=== PATIENT | male | born 1935 | race Caucasian/White ===

== ENCOUNTER 2021-08-01 07:07 | Emergency (ER) | payer MEDICARE ==
[2021-08-01] MEDS ORDERED: Ibuprofen 200 MG TAB ONE (08:02)
== END 2021-08-01 09:34 | disposition home or self-care (01) ==
LOC: ERS 07:07
DX: R10.2 Pelvic and perineal pain (principal); I48.91 Unspecified atrial fibrillation; W19.XXXA Unspecified fall, initial encounter
CPT/HCPCS: 72170; 72192

== ENCOUNTER 2022-05-22 10:49 | Observation (INO) | payer MEDICARE, OTHER ==
[2022-05-22] MEDS ORDERED: Diltiazem 125 MG/25 ML SDV ONE (11:07)
[2022-05-22 11:27] LABS: #Eosinphils 0.8 thou/uL (0.0-0.7); #Lymphocytes 1.2 thou/uL (1.20-3.40); #Monocytes 0.8 thou/uL (0.11-0.59); #Neutrophils 3.6 thou/uL (1.40-6.50); %Basophils 0.7 % (0.0-1.0); %Eosinophils 11.9 % (0.0-10.0); %Lymphocytes 19.2 % (21.0-51.0); %Monocytes 12.2 % (0.0-10.0); %Neutrophils 55.9 % (42.0-75.0); Hemoglobin 15.8 g/dL (14.0-18.0); Mean Corpuscular HGB CONC 33.1 g/dL (32.0-36.0); Mean Corpuscular Hemoglobin 34.7 pg (27.0-31.0); Mean Platelet Volume 6.6 fL (7.4-10.4); Platelet Count 296 10x3/uL (130-400); RBC Distribution Width 13.2 % (11.5-14.5); Red Blood Cell (RBC) Count 4.55 mill/uL (4.70-6.10); White Blood Cell (WBC) Count 6.4 10x3/uL (4.8-10.8)
[2022-05-22 11:50] LABS: ALT (SGPT) 15 U/L (8-55); AST (SGOT) 19 U/L (5-34); Albumin 3.8 g/dL (3.4-4.8); Alkaline Phosphatase 95 U/L (40-110); Anion Gap 12 mmol/L (10-20); BUN (Urea Nitrogen) 9 mg/dL (8.4-25.7); Calc. Creatinine Clearance 0 mL/min (70-130); Calcium 8.6 mg/dL (7.8-10.44); Carbon Dioxide 28 mmol/L (23-31); Chloride 99 mmol/L (98-107); Estimated GFR 61; Globulin 2.4 g/dL (2.4-3.5); Glucose 104 mg/dL (83-110); Potassium 3.9 mmol/L (3.5-5.1); Protein, Total 6.2 g/dL (5.8-8.1); Sodium 135 mmol/L (136-145)
[2022-05-22] MEDS ORDERED: Ondansetron PF 4 MG/2 ML Vial IVP PRN (13:15)
[2022-05-22] MEDS ORDERED: Bisacodyl 5 MG TAB PO PRN (13:15)
[2022-05-22] MEDS ORDERED: Senokot S 8.6-50 MG TAB PO PRN (13:15)
[2022-05-22] MEDS ORDERED: Acetaminophen 325 MG TAB PO PRN (13:15)
[2022-05-22] MEDS ORDERED: Bisacodyl 10 MG SUPP PR PRN (13:15)
[2022-05-22] MEDS ORDERED: Diltiazem 125 MG in Sodium Chloride 0.9% 100 ML IVPB SCH (13:30)
[2022-05-22] MEDS ORDERED: Sodium Chloride 0.9% 1,000 ML IV SCH (13:30)
[2022-05-22] MEDS ORDERED: Potassium Chloride 20 MEQ TAB PO SCH (13:30)
[2022-05-22 13:52] LABS: Magnesium 1.7 mg/dL (1.6-2.6)
[2022-05-22 14:16] LABS: Troponin I 0.022 ng/mL (< 0.028)
[2022-05-22] MEDS ORDERED: Magnesium 2 GM/50 ML(in water) 2 GM in Premix Bag 1 BAG IVPB SCH (15:45)
[2022-05-22 17:01] VITALS: BMI 24.0
[2022-05-22 17:30] LABS: Troponin I 0.036 ng/mL (< 0.028)
[2022-05-22] MEDS: Amiodarone 200 MG TAB PO SCH ×2 (17:48→22:08)
[2022-05-22] MEDS: Apixaban 5 MG TAB PO SCH (22:10)
[2022-05-23 05:08] LABS: #Eosinphils 1.3 thou/uL (0.0-0.7); #Lymphocytes 1.2 thou/uL (1.20-3.40); #Monocytes 0.8 thou/uL (0.11-0.59); %Basophils 0.6 % (0.0-1.0); %Eosinophils 17.3 % (0.0-10.0); %Lymphocytes 16.4 % (21.0-51.0); %Monocytes 10.7 % (0.0-10.0); Hemoglobin 15.3 g/dL (14.0-18.0); Mean Corpuscular HGB CONC 32.2 g/dL (32.0-36.0); Mean Corpuscular Hemoglobin 33.9 pg (27.0-31.0); Mean Platelet Volume 6.5 fL (7.4-10.4); Platelet Count 308 10x3/uL (130-400); RBC Distribution Width 13.1 % (11.5-14.5); White Blood Cell (WBC) Count 7.3 10x3/uL (4.8-10.8)
[2022-05-23 05:10] LABS: Hemoglobin A1c 4.9 % (4.0-6.0)
[2022-05-23 05:29] LABS: ALT (SGPT) 13 U/L (8-55); AST (SGOT) 21 U/L (5-34); Albumin 3.7 g/dL (3.4-4.8); Alkaline Phosphatase 95 U/L (40-110); Anion Gap 10 mmol/L (10-20); BUN (Urea Nitrogen) 10 mg/dL (8.4-25.7); Bilirubin, Total 3.1 mg/dL (0.2-1.2); Calc. Creatinine Clearance 59 mL/min (70-130); Calcium 8.6 mg/dL (7.8-10.44); Carbon Dioxide 27 mmol/L (23-31); Chloride 102 mmol/L (98-107); Estimated GFR 76; Glucose 96 mg/dL (83-110); Magnesium 2.2 mg/dL (1.6-2.6); Potassium 4.1 mmol/L (3.5-5.1); Sodium 135 mmol/L (136-145)
[2022-05-23] MEDS: Amiodarone 200 MG TAB PO SCH ×2 (09:46→14:28)
[2022-05-23] MEDS: Apixaban 5 MG TAB PO SCH (09:46)
[2022-05-23] MEDS ORDERED: Furosemide 20 MG/2 ML VIAL SLOW IVP SCH (10:45)
[2022-05-23 12:40] VITALS: BP 129/69; TEMP 98.4
[2022-05-24] MEDS ORDERED: Amiodarone 200 MG TAB PO SCH (09:00)
== END 2022-05-23 14:36 | disposition home or self-care (01) ==
LOC: ERS 10:49 → ERHOLD 13:18 → 2SW 16:32
PROVIDERS: ADMIT Family Medicine; ATTEND Family Medicine
DX: I48.0 Paroxysmal atrial fibrillation (principal); I95.9 Hypotension, unspecified; M79.89 Other specified soft tissue disorders; E87.1 Hypo-osmolality and hyponatremia; R05.9 Cough, unspecified; I49.3 Ventricular premature depolarization; I08.3 Combined rheumatic disorders of mitral, aortic and tricuspid valves; E80.6 Other disorders of bilirubin metabolism; Z79.899 Other long term (current) drug therapy; Z88.0 Allergy status to penicillin
CPT/HCPCS: 71045; 80048; 80076; 83036; 83605; 83735 ×2; 84484 ×2; 85025; 85379; 86850; 86900; 86901; 93005; 93306; 96366; 96367; 96374; 96375; 99285; G0378 ×3; 36415; 80053; 84443; J1940; J3475; J7050

== ENCOUNTER 2022-06-10 22:01 | Inpatient (IN) | payer MEDICARE, OTHER ==
[2022-06-10] MEDS ORDERED: Aspirin Chewable 81 MG TAB ONE (22:15)
[2022-06-10 22:44] LABS: #Basophils 0.1 thou/uL (0.0-0.2); #Eosinphils 0.8 thou/uL (0.0-0.7); #Lymphocytes 1.3 thou/uL (1.20-3.40); #Monocytes 0.8 thou/uL (0.11-0.59); #Neutrophils 3.7 thou/uL (1.40-6.50); %Basophils 1.4 % (0.0-1.0); %Eosinophils 11.4 % (0.0-10.0); %Lymphocytes 19.8 % (21.0-51.0); %Monocytes 11.9 % (0.0-10.0); %Neutrophils 55.5 % (42.0-75.0); Hemoglobin 16.1 g/dL (14.0-18.0); Mean Corpuscular HGB CONC 36.5 g/dL (32.0-36.0); Mean Corpuscular Hemoglobin 38.4 pg (27.0-31.0); Mean Platelet Volume 6.9 fL (7.4-10.4); Platelet Count 272 10x3/uL (130-400); White Blood Cell (WBC) Count 6.7 10x3/uL (4.8-10.8)
[2022-06-10 22:57] LABS: ALT (SGPT) 11 U/L (8-55); AST (SGOT) 23 U/L (5-34); Albumin 3.8 g/dL (3.4-4.8); Alkaline Phosphatase 81 U/L (40-110); Anion Gap 16 mmol/L (10-20); BUN (Urea Nitrogen) 10 mg/dL (8.4-25.7); Bilirubin, Total 1.9 mg/dL (0.2-1.2); Calc. Creatinine Clearance 0 mL/min (70-130); Calcium 8.6 mg/dL (7.8-10.44); Carbon Dioxide 28 mmol/L (23-31); Chloride 84 mmol/L (98-107); Estimated GFR 60; Globulin 2.1 g/dL (2.4-3.5); Glucose 135 mg/dL (83-110); Potassium 3.7 mmol/L (3.5-5.1); Protein, Total 5.9 g/dL (5.8-8.1); Sodium 124 mmol/L (136-145)
[2022-06-11 01:37] LABS: Troponin I 0.023 ng/mL (< 0.028)
[2022-06-11 05:09] LABS: Troponin I 0.023 ng/mL (< 0.028)
[2022-06-11] MEDS: Amiodarone 200 MG TAB PO SCH ×2 (09:10→19:52)
[2022-06-11] MEDS: Apixaban 5 MG TAB PO SCH ×2 (09:10→19:52)
[2022-06-11] MEDS ORDERED: Aspirin 325 MG TAB ONE (09:11)
[2022-06-11] MEDS: Aspirin 325 mg Enteric Coated Tablet PO SCH (09:11)
[2022-06-11 09:40] LABS: #Basophils 0.1 thou/uL (0.0-0.2); #Eosinphils 0.6 thou/uL (0.0-0.7); #Lymphocytes 1.2 thou/uL (1.20-3.40); #Monocytes 0.9 thou/uL (0.11-0.59); #Neutrophils 4.1 thou/uL (1.40-6.50); %Basophils 0.7 % (0.0-1.0); %Eosinophils 9.4 % (0.0-10.0); %Lymphocytes 17.6 % (21.0-51.0); %Monocytes 13.5 % (0.0-10.0); %Neutrophils 58.8 % (42.0-75.0); Hemoglobin 15.3 g/dL (14.0-18.0); Mean Corpuscular HGB CONC 35.5 g/dL (32.0-36.0); Mean Corpuscular Hemoglobin 37.1 pg (27.0-31.0); Platelet Count 249 10x3/uL (130-400); RBC Distribution Width 14.1 % (11.5-14.5); Red Blood Cell (RBC) Count 4.13 mill/uL (4.70-6.10); White Blood Cell (WBC) Count 6.9 10x3/uL (4.8-10.8)
[2022-06-11 10:10] LABS: Anion Gap 13 mmol/L (10-20); BUN (Urea Nitrogen) 9 mg/dL (8.4-25.7); Calc. Creatinine Clearance 61 mL/min (70-130); Calcium 8.4 mg/dL (7.8-10.44); Carbon Dioxide 25 mmol/L (23-31); Chloride 88 mmol/L (98-107); Estimated GFR 76; Glucose 90 mg/dL (83-110); Potassium 3.4 mmol/L (3.5-5.1); Sodium 123 mmol/L (136-145)
[2022-06-11] MEDS ORDERED: Potassium Chloride 20 MEQ TAB PO SCH (13:45)
[2022-06-11] MEDS ORDERED: Lactated Ringer's 1,000 ML IV SCH (14:00)
[2022-06-11 15:08] LABS: Magnesium 1.5 mg/dL (1.6-2.6)
[2022-06-11 16:01] VITALS: BMI 23.3
[2022-06-11] MEDS ORDERED: Magnesium Sulfate In Water 4 GM in Premix Bag 1 BAG IVPB SCH (17:15)
[2022-06-11] MEDS: Ipratropium/Albuterol 3 ML NEB NEB SCH ×2 (18:38→22:22)
[2022-06-11] MEDS: Lisinopril 5 MG TAB PO SCH (19:52)
[2022-06-12] MEDS: Ipratropium/Albuterol 3 ML NEB NEB SCH ×5 (02:39→06:20)
[2022-06-12 05:42] LABS: Anion Gap 13 mmol/L (10-20); BUN (Urea Nitrogen) 10 mg/dL (8.4-25.7); Calc. Creatinine Clearance 66 mL/min (70-130); Calcium 8.2 mg/dL (7.8-10.44); Carbon Dioxide 25 mmol/L (23-31); Chloride 89 mmol/L (98-107); Estimated GFR 83; Glucose 106 mg/dL (83-110); Magnesium 2.1 mg/dL (1.6-2.6); Potassium 3.5 mmol/L (3.5-5.1); Sodium 123 mmol/L (136-145)
[2022-06-12 05:44] LABS: #Basophils 0.1 thou/uL (0.0-0.2); #Eosinphils 0.4 thou/uL (0.0-0.7); #Lymphocytes 0.9 thou/uL (1.20-3.40); #Monocytes 1.1 thou/uL (0.11-0.59); #Neutrophils 5.1 thou/uL (1.40-6.50); %Basophils 0.8 % (0.0-1.0); %Eosinophils 5.5 % (0.0-10.0); %Lymphocytes 11.5 % (21.0-51.0); %Monocytes 14.7 % (0.0-10.0); %Neutrophils 67.4 % (42.0-75.0); Hemoglobin 15.4 g/dL (14.0-18.0); Mean Corpuscular HGB CONC 35.6 g/dL (32.0-36.0); Mean Corpuscular Hemoglobin 36.9 pg (27.0-31.0); Mean Platelet Volume 7.2 fL (7.4-10.4); Platelet Count 240 10x3/uL (130-400); RBC Distribution Width 13.8 % (11.5-14.5); Red Blood Cell (RBC) Count 4.16 mill/uL (4.70-6.10); White Blood Cell (WBC) Count 7.5 10x3/uL (4.8-10.8)
[2022-06-12] MEDS: Albuterol 200 PUFF (6.7GM INHALER) INH SCH ×3 (07:02→18:36)
[2022-06-12] MEDS: Ipratropium 200 Puff Oral Inhaler INH SCH ×3 (07:03→18:36)
[2022-06-12] MEDS: Apixaban 5 MG TAB PO SCH ×2 (09:22→20:12)
[2022-06-12] MEDS: Amiodarone 200 MG TAB PO SCH ×2 (09:22→20:11)
[2022-06-12] MEDS: Aspirin 325 mg Enteric Coated Tablet PO SCH (11:00)
[2022-06-12] MEDS: Lisinopril 5 MG TAB PO SCH (20:12)
[2022-06-12] MEDS ORDERED: GUAIFENESIN SF SOLN 200 MG/10 ML UDCUP PO PRN (23:47)
[2022-06-12] MEDS ORDERED: Benzonatate 100 MG CAP PO PRN (23:47)
[2022-06-13] MEDS: Albuterol 200 PUFF (6.7GM INHALER) INH SCH ×4 (00:23→19:22)
[2022-06-13] MEDS: Ipratropium 200 Puff Oral Inhaler INH SCH ×4 (00:23→19:22)
[2022-06-13 05:04] LABS: #Basophils 0.1 thou/uL (0.0-0.2); #Eosinphils 0.8 thou/uL (0.0-0.7); #Lymphocytes 0.9 thou/uL (1.20-3.40); #Neutrophils 4.5 thou/uL (1.40-6.50); %Basophils 0.8 % (0.0-1.0); %Eosinophils 11.1 % (0.0-10.0); %Lymphocytes 12.3 % (21.0-51.0); %Monocytes 13.4 % (0.0-10.0); %Neutrophils 62.3 % (42.0-75.0); Hemoglobin 15.4 g/dL (14.0-18.0); Mean Corpuscular HGB CONC 35.6 g/dL (32.0-36.0); Mean Corpuscular Hemoglobin 37.1 pg (27.0-31.0); Platelet Count 253 10x3/uL (130-400); RBC Distribution Width 13.6 % (11.5-14.5); Red Blood Cell (RBC) Count 4.14 mill/uL (4.70-6.10); White Blood Cell (WBC) Count 7.3 10x3/uL (4.8-10.8)
[2022-06-13 05:24] LABS: Anion Gap 12 mmol/L (10-20); BUN (Urea Nitrogen) 10 mg/dL (8.4-25.7); Calc. Creatinine Clearance 64 mL/min (70-130); Calcium 8.3 mg/dL (7.8-10.44); Carbon Dioxide 27 mmol/L (23-31); Chloride 90 mmol/L (98-107); Estimated GFR 83; Glucose 88 mg/dL (83-110); Potassium 4.1 mmol/L (3.5-5.1); Sodium 125 mmol/L (136-145)
[2022-06-13] MEDS ORDERED: Regadenoson 0.4 MG/5 ML SYRINGE ONE (08:35)
[2022-06-13] MEDS: Apixaban 5 MG TAB PO SCH ×2 (11:45→19:39)
[2022-06-13] MEDS: Aspirin 325 mg Enteric Coated Tablet PO SCH (11:45)
[2022-06-13] MEDS: Amiodarone 200 MG TAB PO SCH ×2 (11:45→19:38)
[2022-06-13] MEDS: Lisinopril 5 MG TAB PO SCH (19:38)
[2022-06-14] MEDS: Albuterol 200 PUFF (6.7GM INHALER) INH SCH ×2 (00:04→07:00)
[2022-06-14] MEDS: Ipratropium 200 Puff Oral Inhaler INH SCH ×2 (00:05→07:01)
[2022-06-14 03:34] VITALS: TEMP 97.6
[2022-06-14 04:47] LABS: #Basophils 0.1 thou/uL (0.0-0.2); #Eosinphils 0.8 thou/uL (0.0-0.7); #Monocytes 1.1 thou/uL (0.11-0.59); #Neutrophils 4.6 thou/uL (1.40-6.50); %Basophils 0.9 % (0.0-1.0); %Eosinophils 10.2 % (0.0-10.0); %Lymphocytes 13.8 % (21.0-51.0); %Monocytes 13.9 % (0.0-10.0); %Neutrophils 61.2 % (42.0-75.0); Hemoglobin 14.9 g/dL (14.0-18.0); Mean Corpuscular HGB CONC 35.2 g/dL (32.0-36.0); Mean Corpuscular Hemoglobin 36.7 pg (27.0-31.0); Mean Platelet Volume 6.9 fL (7.4-10.4); Platelet Count 243 10x3/uL (130-400); RBC Distribution Width 13.5 % (11.5-14.5); Red Blood Cell (RBC) Count 4.05 mill/uL (4.70-6.10); White Blood Cell (WBC) Count 7.5 10x3/uL (4.8-10.8)
[2022-06-14 05:07] LABS: Anion Gap 11 mmol/L (10-20); BUN (Urea Nitrogen) 11 mg/dL (8.4-25.7); Calc. Creatinine Clearance 58 mL/min (70-130); Calcium 8.3 mg/dL (7.8-10.44); Carbon Dioxide 28 mmol/L (23-31); Chloride 92 mmol/L (98-107); Estimated GFR 77; Glucose 89 mg/dL (83-110); Potassium 3.9 mmol/L (3.5-5.1); Sodium 127 mmol/L (136-145)
[2022-06-14 08:40] VITALS: BP 127/74
[2022-06-14] MEDS: Apixaban 5 MG TAB PO SCH (08:51)
[2022-06-14] MEDS: Amiodarone 200 MG TAB PO SCH (08:51)
[2022-06-14] MEDS: Aspirin 325 mg Enteric Coated Tablet PO SCH (08:51)
== END 2022-06-14 11:50 | disposition home or self-care (01) | DRG 645 ==
LOC: ERS 22:01 → ERHOLD 23:53 → 2SW 06-11 15:29 → OBSVTOIN 06-12 11:19
PROVIDERS: ADMIT Hospitalist; ATTEND Internal Medicine
DX: E22.2 Syndrome of inappropriate secretion of antidiuretic hormone (principal); I48.91 Unspecified atrial fibrillation; R07.9 Chest pain, unspecified; I10 Essential (primary) hypertension; Z79.899 Other long term (current) drug therapy; Z88.0 Allergy status to penicillin; Z79.01 Long term (current) use of anticoagulants; T50.2X5A Adverse effect of carbonic-anhydrase inhibitors, benzothiadiazides and other diuretics, initial encounter
CPT/HCPCS: 36415; 71045; 78452; 80048; 80053; 83735; 83880; 83930; 84443; 84484; 85025; 93005; 93017; 93970; 94760; 96374; A9500; G0378; J2785; J3475; J7120; J7620

== ENCOUNTER 2022-10-06 11:38 | Outpatient (CLI) | payer MEDICARE, OTHER | END 2022-10-06 11:39 | disposition home or self-care (01) | LOC: RAD 11:38 | PROVIDERS: ATTEND Nurse Practitioner Family | DX: S22.31XA Fracture of one rib, right side, initial encounter for closed fracture (principal); W19.XXXA Unspecified fall, initial encounter; I51.7 Cardiomegaly; K63.89 Other specified diseases of intestine ==

== ENCOUNTER 2023-01-15 10:19 | Outpatient (CLI) | payer MEDICARE, OTHER | END 2023-01-15 10:20 | disposition home or self-care (01) | LOC: ULT 10:19 | PROVIDERS: ATTEND Family Medicine | DX: R19.09 Other intra-abdominal and pelvic swelling, mass and lump (principal); K40.90 Unilateral inguinal hernia, without obstruction or gangrene, not specified as recurrent | CPT/HCPCS: 76999 ==